=== PATIENT | female | born 1995 | race Caucasian/White ===

== ENCOUNTER 2018-05-20 14:28 | Emergency (ER) | payer OTHER ==
[~2018-05-20] VITALS: Ht 157.5 cm; Wt 61.4 kg
[2018-05-20 14:46] VITALS: PULSE 71; TEMP 99.1
[2018-05-20 15:52] LABS: BASO # 0.1 (0.0-0.2); BASO % 0.6 % (0.0-2.0); EOS # 0.1 (0.0-0.7); EOS % 1.3 % (0-4.0); GRAN # 5.8 (1.4-6.5); GRAN % 66.8 % (42.2-75.2); HEMATOCRIT 39.5 % (37.0-47.0); HEMOGLOBIN 12.8 g/dl (12.5-16.0); LYMPH # 2.1 (1.2-3.4); LYMPH % 24.7 % (20.0-51.0); MEAN CELL VOLUME 81 fl (80.0-100.0); MEAN CORPUSCULAR HEMOGLOBIN 26 pg (27.0-31.0); MEAN CORPUSCULAR HGB CONC 32 g/dl (33.0-37.0); MEAN PLATELET VOLUME 10.9 fl (7.4-10.4); MONO # 0.5 (0.1-0.6); MONO % 6.3 % (1.7-9.3); PLATELET COUNT 221 K/mm3 (130-400); RED BLOOD COUNT 4.85 M/mm3 (4.10-5.30); REDCELL DISTRIBUTION WIDTH-CV 14.3 % (11.5-14.5)
[2018-05-20 16:03] LABS: ALBUMIN 4.1 gm/dL (3.5-5.0); BILIRUBIN,TOTAL 0.4 mg/dL (0.0-1.0); CALCIUM 9.4 mg/dL (8.4-10.2); CREATININE, serum 0.59 mg/dL (0.52-1.25); POTASSIUM 4.2 mmol/L (3.4-5.0); TOTAL PROTEIN 7.4 gm/dL (6.4-8.2)
[2018-05-20 16:05] LABS: C-REACTIVE PROTEIN 0.5 mg/dL (0.0-0.9)
[2018-05-20 16:45] LABS: COLLECTION METHOD CLEAN CATCH
[2018-05-20 17:00] LABS: MUCOUS Present /lpf; SQUAMOUS EPITHELIAL 0-2 /hpf; URINE BACTERIA None Seen /hpf; URINE RBC 0-2 /hpf
[2018-05-20 17:01] LABS: PH 7 (5-8); URINE APPEARANCE Hazy; URINE BILIRUBIN Negative (NEGATIVE); URINE COLOR Yellow; URINE GLUCOSE Negative (NEGATIVE); URINE KETONE Negative (NEGATIVE); URINE PROTEIN(semi-quant) Negative (NEGATIVE)
[2018-05-20 17:02] LABS: URINE BLOOD Negative (NEGATIVE); URINE LEUKOCYTE ESTERASE Negative (NEGATIVE); URINE NITRATE Negative (NEGATIVE); URINE UROBILINOGEN Negative (NEGATIVE)
[2018-05-20] MEDS ORDERED: ULTRAM 50MG TAB50 MG PO (17:23)
[2018-05-20 20:15] VITALS: BP 123/74
== END 2018-05-20 20:15 | disposition home or self-care (01) ==
LOC: COL.ER 14:28
PROVIDERS: Family Medicine
DX: R10.2 Pelvic and perineal pain (principal); N80.9 Endometriosis, unspecified
CPT/HCPCS: J1170; J1885; J2405; J7030; Q9967

== ENCOUNTER 2018-06-05 11:28 | Emergency (ER) | payer OTHER ==
[~2018-06-05] VITALS: Ht 157.5 cm; Wt 58.2 kg
[~2018-06-05 11:28] MED LIST: ULTRAM 50MG TAB50 MG PO
[2018-06-05 11:30] VITALS: BP 124/79
[2018-06-05] MEDS ORDERED: VISTARIL 2525 MG/CAP PO (12:15)
[2018-06-05 12:38] VITALS: PULSE 81; TEMP 98.5
== END 2018-06-05 12:38 | disposition home or self-care (01) ==
LOC: COL.ER 11:28
DX: F41.9 Anxiety disorder, unspecified (principal); G89.29 Other chronic pain; R10.2 Pelvic and perineal pain; Z98.890 Other specified postprocedural states

== ENCOUNTER 2018-07-21 19:42 | Emergency (ER) | payer OTHER ==
[~2018-07-21] VITALS: Ht 157.5 cm; Wt 55.9 kg
[~2018-07-21 19:42] MED LIST changes: +VISTARIL 2525 MG/CAP PO
[2018-07-21 19:57] VITALS: TEMP 98.7
[2018-07-21 21:21] LABS: COLLECTION METHOD CLEAN CATCH
[2018-07-21 21:28] LABS: MUCOUS Present /lpf; PH 5 (5-8); SQUAMOUS EPITHELIAL 0-2 /hpf; URINE APPEARANCE Clear; URINE BACTERIA None Seen /hpf; URINE BILIRUBIN Negative (NEGATIVE); URINE BLOOD Negative (NEGATIVE); URINE COLOR Yellow; URINE GLUCOSE Negative (NEGATIVE); URINE KETONE Negative (NEGATIVE); URINE LEUKOCYTE ESTERASE Negative (NEGATIVE); URINE NITRATE Negative (NEGATIVE); URINE PROTEIN(semi-quant) 2+ (NEGATIVE); URINE RBC 0-2 /hpf; URINE UROBILINOGEN Negative (NEGATIVE)
[2018-07-21 22:09] LABS: BASO # 0.1 (0.0-0.2); BASO % 0.6 % (0.0-2.0); EOS # 0.1 (0.0-0.7); EOS % 1.6 % (0-4.0); GRAN # 4.9 (1.4-6.5); GRAN % 56.3 % (42.2-75.2); HEMATOCRIT 40.3 % (37.0-47.0); HEMOGLOBIN 13.1 g/dl (12.5-16.0); LYMPH % 35.2 % (20.0-51.0); MEAN CELL VOLUME 81 fl (80.0-100.0); MEAN CORPUSCULAR HEMOGLOBIN 27 pg (27.0-31.0); MEAN CORPUSCULAR HGB CONC 33 g/dl (33.0-37.0); MEAN PLATELET VOLUME 11.1 fl (7.4-10.4); MONO # 0.5 (0.1-0.6); MONO % 6.1 % (1.7-9.3); PLATELET COUNT 236 K/mm3 (130-400); RED BLOOD COUNT 4.95 M/mm3 (4.10-5.30); REDCELL DISTRIBUTION WIDTH-CV 13.7 % (11.5-14.5)
[2018-07-21 22:23] LABS: ALBUMIN 4.3 gm/dL (3.5-5.0); BILIRUBIN,TOTAL 0.5 mg/dL (0.0-1.0); C-REACTIVE PROTEIN 0.6 mg/dL (0.0-0.9); CALCIUM 9.3 mg/dL (8.4-10.2); CREATININE, serum 0.6 mg/dL (0.52-1.25); POTASSIUM 4.3 mmol/L (3.4-5.0); TOTAL PROTEIN 7.6 gm/dL (6.4-8.2)
[2018-07-21] MEDS ORDERED: FLEXERIL 1010 MG/TAB PO (22:46)
[2018-07-21] MEDS ORDERED: LIDODERM 5% PATC1 EA TP (22:46)
[2018-07-21 22:50] VITALS: BP 112/63; PULSE 62
== END 2018-07-21 23:01 | disposition home or self-care (01) ==
LOC: COL.ER 19:42
PROVIDERS: Emergency Medicine; Physician Assistant
DX: R10.9 Unspecified abdominal pain (principal); F17.210 Nicotine dependence, cigarettes, uncomplicated; Z79.891 Long term (current) use of opiate analgesic
CPT/HCPCS: J1885